=== PATIENT | female | born 1935 | race African-American/Black ===

== ENCOUNTER 2019-04-01 20:30 | Emergency (ER) | payer OTHER ==
[~2019-04-01] VITALS: Ht 157.5 cm; Wt 42.0 kg
[~2019-04-01 20:30] MED LIST: AMLO10TA8 PO; GLIM1TAB3 PO; IRBE300T16 PO; METO50TA82 PO; ROSU10TA2 PO
[2019-04-01 20:38] VITALS: BP 169/76
--- NOTE | 2019-04-01 21:04 | NUR ---
PER PT FAMILY PT STARTED WITH A FEVER ON WEDNESDAY OF 89 AND WAS URINATING FREQUENTLY. PT ON HOSPICE AND HOSPICE NURSE CAME TO ASSESS, STARTED PT ON ABX. STARTING TODAY, PER FAMILY, PT WAS CONFUSED AND FELL. "SHES JUST NOT HERSELF" PT DENIES PAIN AT THIS TIME. HOSPICE FOR MASS ON HER LIVER, UNSURE IF CANCEROUS OR NOT. PT DOES NOT WANT INTERVENTIONS FOR MASS. HOSPICE FOR 1 YEAR SO FAR. PT ALERT AND ORIENTED TO HERSELF, SITUATION, AND LOCATION BUT UNAWARE OF MONTH/YEAR.
[2019-04-01 21:26] LABS: BASOPHILS # (AUTO) 0.01 x10^3/uL (0-0.1); BASOPHILS % (AUTO) 0 % (0-1); EOSINOPHILS % (AUTO) 0 % (1-7); LYMPHOCYTES # (AUTO) 0.69 x10^3/uL (1-3.4); LYMPHOCYTES % (AUTO) 14 % (22-44); MD NO; MEAN CORPUSCULAR HEMOGLOBIN 31.6 pg (27.0-34.8); MEAN CORPUSCULAR HGB CONC 33.3 g/dL (32.4-35.8); MEAN CORPUSCULAR VOLUME 94.9 fL (80-100); MEAN PLATELET VOLUME 8.6 fL (7.4-10.4); MONOCYTES # (AUTO) 0.56 x10^3/uL (0.2-0.8); MONOCYTES % (AUTO) 12 % (2-9); NEUTROPHILS # (AUTO) 3.58 x10^3/uL (1.8-6.8); NEUTROPHILS % (AUTO) 74 % (42-75); PLATELET COUNT 119 x10^3/uL (130-400); RED BLOOD COUNT 3.57 x10^6/uL (3.82-5.3)
[2019-04-01 21:35] LABS: ANION GAP 7 mmol/L (5-15); CALCIUM 9.5 mg/dL (8.5-10.1); CHLORIDE 99 mmol/L (98-107)
--- NOTE | 2019-04-01 21:36 | NUR ---
PT STRAIGHT CATH'ED FOR URINE. PT TOLERATED PROCEDURE WELL. URINE WALKED TO LAB
[2019-04-01 21:38] LABS: ALANINE AMINOTRANSFERASE 78 U/L (12-78); ALKALINE PHOSPHATASE 217 U/L (45-117); BILIRUBIN,TOTAL 0.8 mg/dL (0.2-1.0); TOTAL PROTEIN 7.8 g/dL (6.4-8.2)
[2019-04-01 21:47] LABS: CULTURE INDICATED? NO; MICROSCOPIC AUTO
== END 2019-04-01 23:02 | disposition home or self-care (01) ==
LOC: ED 22:46
DX: R05 Cough (principal); E11.65 Type 2 diabetes mellitus with hyperglycemia; R35.0 Frequency of micturition; I10 Essential (primary) hypertension; Z90.49 Acquired absence of other specified parts of digestive tract; Z90.710 Acquired absence of both cervix and uterus
CPT/HCPCS: 36415; 71045; 80053; 81001; 82962; 83690; 85025; 99284